=== PATIENT | male | born 1980 | race Caucasian/White ===

== ENCOUNTER 2017-07-12 06:13 | Observation (INO) | payer SELFPAY ==
[~2017-07-12] VITALS: Ht 172.7 cm; Wt 78.0 kg
--- NOTE | 2017-07-12 06:43 | NUR ---
PT. TO ROOM 6 VIA W/C WITH C/O HIS TESTICLES BEING EDEMATOUS FOR 3 DAYS.
--- NOTE | 2017-07-12 06:47 | NUR ---
REPORT GIVEN TO BALDOMERO MALIK.
--- NOTE | 2017-07-12 06:47 | NUR ---
REPORT RECEIVED FROM KING LLOYD.
[2017-07-12 07:01] LABS: IMMATURE GRANULOCYTES 0.8 % (0.0-1.0); MEAN CELL VOLUME 86.3 fL CALC (80.0-100.0); MEAN CORPUSCULAR HGB 29.3 pG CALC (26.0-32.0); MEAN CORPUSCULAR HGB CONC 33.9 g/L CALC (32.0-36.0); NEUT# 25.36 thou/uL (1.82-7.42); RED BLOOD COUNT 4.75 mill/uL (4.70-6.10); RED CELL DISTRI WIDTH 12.5 % (11.5-15.5)
[2017-07-12 07:02] LABS: HEMOGLOBIN 13.9 g/dl (14.0-18.0)
[2017-07-12 07:03] LABS: URINE BILIRUBIN - DIPSTICK NEGATIVE (NEGATIVE); URINE BLOOD DIPSTICK NEGATIVE (NEGATIVE); URINE COLOR YELLOW; URINE GLUCOSE - DIPSTICK NEGATIVE (NEGATIVE); URINE KETONE NEGATIVE (NEGATIVE); URINE LEUK ESTERASE NEGATIVE (NEGATIVE); URINE PH 8.5 (4.5-8.0); URINE PROTEIN - DIPSTICK TRACE mg/dL (NEG-TRACE); URINE SPECIFIC GRAVITY 1.015; URINE UROBILINOGEN - DIPSTICK 0.2 E.U./dL (0.2)
[2017-07-12 07:04] LABS: URINE CLARITY CLEAR; URINE NITRITE - DIPSTICK POSITIVE (Negative)
--- NOTE | 2017-07-12 07:20 | NUR ---
PATIENT MEDICATED WITH A TOTAL OF 6 MG OF MORPHINE, 30 MG OF TORADOL, 4 MG OF ZOFRAN AND IV ANTIBIOTICS STARTED IN TWO DIFFERENT LINES. PATIENT CONTINUES TO BE RESTLESS IN BED HOLDING TESTICLES. INFORMED OF CT SCAN AND UTRASOND ORDERS MOTHER AT BEDSIDE. CALL LIGHT WITHIN REACH.
[2017-07-12 07:21] LABS: ALBUMIN 4.5 g/dL (3.2-5.0); ALKALINE PHOSPHATASE 101 u/l (38-126); ANION GAP 21 (6-22 (CALC)); BILIRUBIN, TOTAL 0.7 mg/dL (0.0-1.4); BUN 12 mg/dL (9-20); BUN/CREATININE RATIO 12 (12-20 (CALC)); CARBON DIOXIDE 25 mmol/l (22-30); CHLORIDE 97 mmol/l (95-108); CREATININE 1.1 mg/dL (0.7-1.3); GFR > 60 ML/MIN (>=60 (CALC)); GFR FOR AFR.AMER. > 60 ML/MIN (>=60 (CALC)); POTASSIUM 4.7 mmol/l (3.5-5.1); SGOT/AST 21 u/l (17-59); SGPT/ALT 29 u/l (21-72); SODIUM 138 mmol/l (137-146); TOTAL PROTEIN 7.4 g/dL (6.3-8.2); URINE WBC 20-50 WBC/hpf (0-5)
[2017-07-12 07:22] LABS: URINE BACTERIA MANY hpf; URINE EPITHELIAL CELLS FEW EPI/hpf (0-FEW)
--- NOTE | 2017-07-12 08:00 | NUR ---
PATIENT CONTINUES IN RADIOLOGY DEPARTMENT.
--- NOTE | 2017-07-12 08:35 | NUR ---
PATIENT VOIDS 125 ML OF CLEAR YELLOW URINE WITH PAIN AND DIFFICULTY STARTING FLOW. REPORTS PAIN LEVEL 4/10 AT THIS TIME. SIDERAILS UP, CALL LIGHT WITHIN REACH, WILL CONTINUE TO MONITOR.
--- NOTE | 2017-07-12 09:07 | NUR ---
PT MEDICATED FOR PAIN VIA IV. FLUIDS CONTINUE. PT VOIDED APPROX 300 ML URINE IN URINAL. ADVISED OF CONTINUED WAIT TIME.
--- NOTE | 2017-07-12 09:47 | NUR ---
REPORT GIVEN KING AGUILERA. REQUEST 20 MINUTES DELAY IN TRANSPORT.
--- NOTE | 2017-07-12 10:08 | NUR ---
PATIENT REPORTS PAIN 7/10 AT THIS TIME. UPDATED ON PLAN OF CARE. VERBAL UNDERSTANDING.
--- NOTE | 2017-07-12 10:20 | NUR ---
PATIENT TRANSPORTED TO [facility] VIA STRETCHER, BEDSIDE REPORT GIVEN TO KING AGUILERA. VANCO ANTIBIOTIC TO CONTINUE INFUSION ON [facility]. CARE RELINQUISHED TO KING AGUILERA.
--- NOTE | 2017-07-12 10:25 | NUR ---
PT ARRIVED TO FLOOR VIA STRETCHER ACCOMPANIED BY KING ALEXANDRE. PT DOUBLED OVER APPEARING TO BE IN SEVERE PAIN. REPORTS PAIN IS 10 ON SCALE OF 0-10 IN TESTICLES, RADIATING THROUGH TO BACK. DR. SNOW NOTIFIED. PLAN OF CARE DISCUSSED. MOTHER AT BEDSIDE. CALL LIGHT REVIEWED AND IN REACH.
[2017-07-12 10:29] VITALS: BP 103/74
--- NOTE | 2017-07-12 10:45 | NUR ---
PT MEDICATED WITH MORPHINE IV AT THIS TIME. WILL MONITOR FOR EFFECTIVENESS.
--- NOTE | 2017-07-12 11:54 | NUR ---
Drug Selected: Vancomycin Age: 36 years Weight: 78 kg Height: 68 in Gender: Male SCR: 1.1 mg/dl Calculated Values: Dosing weight: 78 kg IBW: 68.40 kg CRCL (ml/min): 90.7 GIVE VANCOMYCIN 1250MG Q12H NEXT TROUGH WILL BE 07/14/17 BEFORE 4TH DOSE AT 0830 PHARMACY TO DOSE ZOSYN BASED ON RENAL FUNCTION PER
--- NOTE | 2017-07-12 13:10 | NUR ---
PT REPORTING SEVERE TESTICULAR PAIN. PERCOCET PO ADMINISTERED.
--- NOTE | 2017-07-12 16:00 | NUR ---
PT SLEEPING AT THIS TIME. CALL LIGHT WITHIN REACH.
[2017-07-12 16:30] VITALS: BP 92/62
--- NOTE | 2017-07-12 17:34 | NUR ---
PT REPORTING SEVERE TESTICULAR PAIN. MS IV ADMINISTERED. WILL CONTINUE TO MONITOR.
[2017-07-12 19:42] VITALS: BP 118/68
--- NOTE | 2017-07-12 22:10 | NUR ---
PATIENT RESTING IN BED-C/O SEVERE LOW BACK AND TESTICULAR PAIN-MEDICATED WITH PERCOCET 5/325MG PO AND WITH XANAX 0.5MG PO FOR ANXIETY. PATIENT IS RESTLESS AND THRAHING ABOUT IN THE BED. INSTRUCTED PATIENT REGUARDING I&O AND USING THE URINAL. VERBALIZES UNDERSTANDING OF THE STATED. CALL LIGHT IN REACH. WILL CONT TO MONITOR.
--- NOTE | 2017-07-13 00:53 | NUR ---
APPEARS SLEEPING AT THIS TIME WITH EYES CLOSED. IVF NS PATENT AND INFUSING AT 125CC/HR VIA RIGHT AC SITE. CALL LIGHT IN REACH. WILL CONT TO MONITOR.
--- NOTE | 2017-07-13 03:00 | NUR ---
PATIENT VOIDED 200CC OF FRAN URINE-C/O SEVERE PAIN, RESTLESS IN THE BED. MEDICATED WITH PERCOCET 5/325MG PO FOR PAIN. CALL LIGHT IN REACH. WILL CONT TO MONITOR.
--- NOTE | 2017-07-13 04:00 | NUR ---
TEMP 100.9-MEDICATED WITH TYLENOL 650MG PO FOR TEMP. PAIN 4/10 AT THIS TIME. RESTING IN BED. CALL LIGHT IN REACH. WILL CONT TO MONITOR
[2017-07-13 04:10] VITALS: BP 98/62
[2017-07-13 05:37] LABS: BASO% 0 % (0-3); EOS% 0 % (0-8); LYMPH% 4 % (15-41); MEAN CELL VOLUME 87.9 fL CALC (80.0-100.0); MEAN CORPUSCULAR HGB 29.5 pG CALC (26.0-32.0); MEAN CORPUSCULAR HGB CONC 33.5 g/L CALC (32.0-36.0); MONO% 8 % (2-13); NEUT# 34.06 thou/uL (1.82-7.42); NEUT% 84 % (42-76); RED CELL DISTRI WIDTH 13.1 % (11.5-15.5)
[2017-07-13 05:56] LABS: BAND 8 % (0-8); HEMATOCRIT 33.4 % (39.0-50.0); HEMOGLOBIN 11.2 g/dl (14.0-18.0); MANUAL DIFFERENTIAL YES; PLATELET COUNT 296 thou/uL (130-400)
--- NOTE | 2017-07-13 07:15 | NUR ---
PATIENT IS AFEBRILE AT THIS TIMESITTING UP IN THE CHAIR. C/O PAIN 8/10 ON PAIN SCALE. MEDICATED WITH PERCOCET 5/325MG PO. DR. SNOW NOTIFIED OF WBC-CULTURES ORDERED. SPECS OBTAINED. IVF PATENT AND INFUSING VIA RIGHT AC SITE-SITE APPEARS HEALTHY AT THIS TIME. LINENS BEING CHANGED ON HIS BED. CALL LIGHT IN REACH. WILL CONT TO MONITOR.
--- NOTE | 2017-07-13 07:26 | NUR ---
REPORT RECEIVED FROM KING SHAW. PT SITTING IN CHAIR AT BEDSIDE. REPORTS SCROTAL PAIN. PERCOCET PO ADMINISTERED. PLAN OF CARE DISCUSSED. REPORTING OF CONCERNS ENCOURAGED. CALL LIGHT REVIEWED AND IN REACH. PT STATES UNDERSTANDING.
[2017-07-13 08:22] VITALS: BP 136/72
--- NOTE | 2017-07-13 11:53 | NUR ---
PT IN SEVERE LEFT PELVIC AND SCROTAL PAIN. PERCOCET PO ADMINISTERED WITH NO RELIEF. MORPHINE IV ADMINISTERED WITH NO RELIEF. SCROTUM ELEVATED AND ICE PACK APPLIED. PT STILL CRYING AND MOANING IN PAIN. THANH EMANUEL IN TO SEE PT. ORDER FOR DILAUDID IV X 1 ORDERED. WILL MONITOR FOR EFFECTIVENESS.
--- NOTE | 2017-07-13 12:22 | NUR ---
PT CALM NOW. REPORTS RELIEF OF PAIN. SCROTUM ELEVATED. REPORTING OF RETURN OF PAIN ENCOURAGED. PT STATES UNDERSTANDING.
[2017-07-13 15:54] VITALS: BP 112/72
--- NOTE | 2017-07-13 16:30 | NUR ---
PT REPORTS SEVERE PELVIC AND SCROTAL PAIN. DILAUDID IV ADMINISTERED. PT REPORTS RELIEF WITHIN A FEW MINUTES. INSTRUCTED TO NOTIFY NURSE WHEN PAIN STARTS TO RETURN.
[2017-07-13 18:48] VITALS: BP 105/63
--- NOTE | 2017-07-13 19:58 | NUR ---
PATIENT RESTING IN BED-AWAKE ALERT AND ORIENTEDX3. IV SITE TO RIGHT AC IS LEAKING AND SITE D/GALINDO. IVF NS MOVED TO HEP LOCK TO LEFT FOREARM AND INFUSING AT 125CC/HR. SCROTUM IS SEVERELY RED, SWOLLEN, AND PAINFUL. USING COLD PACK TO AFFECTED AREA FOR 20MINAT A TIME. MEDICATED FOR PAIN-10/10 ON PAIN SCALE WITH DILAUDID 1MG IVP. PATIENT WITH PAINFUL URINATION-CLEAR YELLOW URINE 125CC/HR IN URINAL. SAFETY PRECAUTIONS REINFORCED. CALL LIGHT IN REACH. WILL CONT TO MONITOR.
--- NOTE | 2017-07-13 22:27 | NUR ---
APPEARS SLEEPING AT THIS TIME. CALL LIGHT IN REACH. WILL CONT TO MONITOR.
[2017-07-13 23:59] VITALS: BP 109/76
--- NOTE | 2017-07-14 00:15 | NUR ---
IV BASIASYN HUNG ORDERED. PATIENT OOB TO BR TO VOID 300CC OF YELLOW URINE-URINE IS MUCH DIRECTOR OF SPECIAL EDUCATION THAN LAST NIGHT. STILL IS VERY PAINFUL URINATION AND PATIENT RETURNED TO BED. MEDICATED FOR 10/10 ON PAIN SCALE WITH DILAUDID 1MG IVP. CALL LIGHT IN REACH. WILL CONT TO MONITOR.
--- NOTE | 2017-07-14 02:42 | NUR ---
APPEARS SLEEPING AT THIS TIME. CALL LIGHT IN REACH. IVF PATENT AND INFUSING AT 125CC/HR. WILL CONT TO MONITOR.
--- NOTE | 2017-07-14 03:30 | NUR ---
PATIENT UP TO THE BR TO VOID-RETURNED TO BED. PATIENT C/O 01/28 PAIN MEDICATED WITH DILAUDID 1MG IVP FOR SCROTAL PAIN. NEW IV SITE TO RIGHT UPPER ARM WAS STARTED WITHOUT ANY DIFFICULTY WITH GOOD BLOOD RETURN. IVF NS PATENT AND INFUSING AT 125CC/HR. USE COLD PACKS TO SCROTUM FOR COMFORT AND SWELLING. CALL LIGHT IN REACH. WILL CONT TO MONITOR.
[2017-07-14 03:59] VITALS: BP 126/79
[2017-07-14 05:06] LABS: BASO% 0 % (0-3); EOS% 1 % (0-8); HEMATOCRIT 31.8 % (39.0-50.0); HEMOGLOBIN 10.8 g/dl (14.0-18.0); LYMPH% 5 % (15-41); MEAN CELL VOLUME 88.1 fL CALC (80.0-100.0); MEAN CORPUSCULAR HGB 29.9 pG CALC (26.0-32.0); MONO% 7 % (2-13); NEUT# 26.32 thou/uL (1.82-7.42); NEUT% 85 % (42-76); PLATELET COUNT 272 thou/uL (130-400); RED BLOOD COUNT 3.61 mill/uL (4.70-6.10); RED CELL DISTRI WIDTH 13.1 % (11.5-15.5)
[2017-07-14 05:09] LABS: MANUAL DIFFERENTIAL YES
--- NOTE | 2017-07-14 05:22 | NUR ---
RECIEVED CALL FROM [facility] IN LAB-WBC 30.9-TRENDING DOWN AND TREATMENT IN PLACE. PATIENT RESTING IN BED APPEARS SLEEPING. TEMP 99.2 AFTER TYLENOL. CALL LIGHT IN REACH. WILL CONT TO MONITOR
[2017-07-14 05:25] LABS: ALKALINE PHOSPHATASE 115 u/l (38-126); BILIRUBIN, TOTAL 0.4 mg/dL (0.0-1.4); BUN 7 mg/dL (9-20); BUN/CREATININE RATIO 8 (12-20 (CALC)); CARBON DIOXIDE 23 mmol/l (22-30); CHLORIDE 103 mmol/l (95-108); CREATININE 0.8 mg/dL (0.7-1.3); GFR > 60 ML/MIN (>=60 (CALC)); GFR FOR AFR.AMER. > 60 ML/MIN (>=60 (CALC)); SGOT/AST 15 u/l (17-59); SGPT/ALT 35 u/l (21-72); SODIUM 136 mmol/l (137-146)
[2017-07-14 05:26] LABS: ANION GAP 14 (6-22 (CALC))
[2017-07-14 05:27] LABS: ALBUMIN 2.6 g/dL (3.2-5.0); C-REACTIVE PROTEIN 13.5 mg/dL (0-0.9); POTASSIUM 3.5 mmol/l (3.5-5.1); TOTAL PROTEIN 5.4 g/dL (6.3-8.2)
[2017-07-14 05:50] LABS: BAND 3 % (0-8)
--- NOTE | 2017-07-14 07:05 | NUR ---
REPORT RECEIVED FROM KING SHAW;PT APPEARS TO BE SLEEPING IN SEMI FOWLERS POSITION;NO S/S OF DISTRESS NOTED;RESPIRATIONS EVEN AND UNLABORED ON RA;FALL PRECAUTIONS IN PLACE;WILL CONTINUE TO MONITOR
[2017-07-14 07:57] VITALS: BP 106/73
--- NOTE | 2017-07-14 08:05 | NUR ---
PT RESTING IN RIGHT SIDE LAYING POSITION;PT A&O X3;VS OBTAINED AND ASSESSMENT COMPLETED;PT COMPLAINS OF SCOTUM PAIN RATING 8/10 ON THE PAIN SCALE AND REQUESTS PAIN MEDICATION;PT MEDICATED WITH DILAUDID 1MG IVP,WILL MONITOR FOR EFFECTIVENESS;RESPIRATIONS EVEN AND UNLABORED ON RA;ABDOMEN SOFT ON PALPATION;#22G TO RIGHT UPPER ARM INFUSING NS @ 125ML/HR WELL,SITE APPEARS HEALTHY;PT ENCOURAGED TO ELEVATE SCROTUM WHICH IS SEVERELY RED,SWOLLEN AND PAINFUL;COOL PACKS PROVIDED;PT DENIES ANY OTHER NEEDS AT THIS TIME AND IS ENCOURAGED TO CALL FOR ASSISTANCE IF NEEDED;CALL LIGHT IN REACH;WILL CONTINUE TO MONITOR
--- NOTE | 2017-07-14 10:03 | NUR ---
S: KATHARINA RONDON JR is a 36 M who presents with orchitis and dysuria. He denied PMH. All medications in patient's chart were reviewed. O: VS: BP 106/73 mmHg, P 102 bpm, RR 20 bpm,T 99.0 (F) W 78.018 kg, HT 68 in, Scr= 1.1,CrCl= 90 ml/min A: Blood culture show no growth after 48 hours. Urine culture shows E. coli which is hassan-sensitive. P: Patient is on Zosyn 3.375 gm IV q6h and levofloxacin 750 mg IV q24h. Vancomycin ordered for pharmacy to dose. Vancomycin trough came back at 7 mcg/mL on 07/14/17 at 0830. Increase vancomycin 1250 mg IV Q8H. Vancomycin trough is drawn before the 4th dose on 07/15/17 at 1630. Patient's Zosyn dose will be moved from 1800 to 1900 to accomodate Vancomycin dosing. Vancomycin goal trough is between 15-20 mcg/ml. Pharmacy will follow and or advise on antibiotics use as needed.
--- NOTE | 2017-07-14 12:20 | NUR ---
PT TO XRAY IN STABLE CONDITION VIA WC ACCOMPANIED BY STAFF MEMBER
--- NOTE | 2017-07-14 13:00 | NUR ---
PT RETURNED FROM CT IN STABLE CONDITION;PT AMBULATED FROM WC TO BEDSIDE WITH STEADY GAIT;IV SITE PATENT;PT VOICES NO CONCERNS AT THIS TIME;ENCOURAGED PT TO KEEP SCROTUM ELEVATED;CALL LIGHT WITHIN REACH;WILL CONTINUE TO MONITOR
[2017-07-14 16:50] VITALS: BP 121/84
--- NOTE | 2017-07-14 17:10 | NUR ---
PT RESTING IN SEMI FOWLERS POSITION WITH FAMILY AT BEDSIDE;PT REPORTS A DECREASE IN PAIN AT THIS TIME;IV SITE PATENT INFUSING NS @ 125ML/HR;ADDITIONAL PILLOW PROVIDED PER REQUEST;PT DENIES ANY OTHER NEEDS;CALL LIGHT IN REACH;WILL CONTINUE TO MONITOR
[2017-07-14 19:00] VITALS: BP 138/83
--- NOTE | 2017-07-14 19:30 | NUR ---
PATIENT RESTING IN BED AT THIS TIME-AWAKE ALERT AND ORIENTEDX3. IV SITE TO RIGHT UPPER ARM INTACT WITH IVF NS PATENT AND INFUSING AT 125CC/HR. SITE APPEARS HEALTHY AT THIS TIME. PATIENT CONT TO HAVE RED SWOLLEN AND PAINFUL SCROTUM-ENCOURAGED PATIENT TO KEEP ELEVATED AND USE COLD PACKS PRN FOR SWELLING AND COMFORT. PATIENT CONT TO HAVE PAINFUL URINATION AND VOIDING YELLOW URINE IN URINAL. SAFETY PRECAUTIONS REINFORCED.CALL LIGHT IN REACH. WILL CONT TO MONITOR.
--- NOTE | 2017-07-14 19:45 | NUR ---
PATIENT WITH TEMP 101.8-MEDICATED WITH TYLENOL 650MG PO AND WITH DILAUDID 1MG IVP FOR SCROTAL PAIN. CALL LIGHT IN REACH. WILL CONT TO MONITOR.
[2017-07-14 20:56] VITALS: BP 117/71
--- NOTE | 2017-07-14 21:00 | NUR ---
PATIENT RESTING IN AND EXTREMELY DIAPHORETIC-SWEATING PROFUSELY. PATIENT UP TO THE BR TO VOID. UDS OBTAINED AND SENT TO LAB ORDERED. BACK TO BED. WILL CONT TO MONITOR
[2017-07-14 21:09] LABS: BARBITURATES NEGATIVE (NEGATIVE); COCAINE NEGATIVE (NEGATIVE); METHADONE NEGATIVE (NEGATIVE); OXCYCODONE POSITIVE (NEGATIVE); TETRAHYDROCANNABIONOL NEGATIVE (NEGATIVE); TRICYLIC ANTIDEPRESSANTS NEGATIVE (NEGATIVE)
--- NOTE | 2017-07-14 22:48 | NUR ---
PATIENT APPEARS SLEEPING AT THIS TIME POSITIONED ON HIS LEFT SIDE. IVF PATENT AND INFUSING VIA RIGHT UPPER ARM SITE. CALL LIGHT IN REACH. WILL CONT TO MONITOR.
[2017-07-15 00:41] VITALS: BP 120/77
--- NOTE | 2017-07-15 02:09 | NUR ---
PATIENT UP TO THE BR TO VOID-EMPTIED 200CC IN URINAL. LINENS ARE DAMP FROM DIAPHORESIS-COMPLETE LINEN AND GOWN CHANGED. BACK TO BED WITH NO COMPLAINTS. ENCOURAGED PO FLUIDS. CALL LIGHT IN REACH. WILL CONT TO MONITOR.
[2017-07-15 03:49] VITALS: BP 118/74
--- NOTE | 2017-07-15 03:58 | NUR ---
PATIENT WITH TEMP OF 101.6-MEDICATED WITH TYLENOL 650 MG PO FOR TEMP. IVF PATENT AND INFUSING AT 125CC/HR. CALL LIGHT IN REACH. WILL CONT TO MONITOR.
[2017-07-15 05:41] LABS: HEMATOCRIT 30.1 % (39.0-50.0); HEMOGLOBIN 10.2 g/dl (14.0-18.0); IMMATURE GRANULOCYTES 2.6 % (0.0-1.0); MEAN CELL VOLUME 87.8 fL CALC (80.0-100.0); MEAN CORPUSCULAR HGB 29.7 pG CALC (26.0-32.0); MEAN CORPUSCULAR HGB CONC 33.9 g/L CALC (32.0-36.0); NEUT# 19.7 thou/uL (1.82-7.42); RED BLOOD COUNT 3.43 mill/uL (4.70-6.10); RED CELL DISTRI WIDTH 12.9 % (11.5-15.5)
--- NOTE | 2017-07-15 06:17 | NUR ---
PATIENT RESTING IN BED-APPEARS SLEEPING-TEMP RECHECK IS 99.3. PATIENT HAS BEEN SLEEPING MOST OF THE NIGHT WITH NO COMPLAINTS. NO C/O PAIN SINCE EARLY LAST NIGHT. TORADOL GIVEN ORDERED. CALL LIGHT IN REACH. WILL CONT TO MONITOR.
[2017-07-15 06:21] LABS: ANION GAP 16 (6-22 (CALC)); BUN 5 mg/dL (9-20); BUN/CREATININE RATIO 6 (12-20 (CALC)); CARBON DIOXIDE 24 mmol/l (22-30); CHLORIDE 106 mmol/l (95-108); CREATININE 0.9 mg/dL (0.7-1.3); GFR > 60 ML/MIN (>=60 (CALC)); GFR FOR AFR.AMER. > 60 ML/MIN (>=60 (CALC)); MAGNESIUM 1.9 mg/dL (1.6-2.3); POTASSIUM 3.4 mmol/l (3.5-5.1); SODIUM 142 mmol/l (137-146)
--- NOTE | 2017-07-15 07:05 | NUR ---
REPORT RECEIVED FROM KING SHAW;PT APPEARS TO BE SLEEPING IN LEFT SIDE LAYING POSITION;NO S/S OF DISTRESS NOTED;RESPIRATIONS EVEN AND UNLABORED ON RA;IV SITE PATENT INFUSING NS @ 125ML/HR;CALL LIGHT IN REACH;WILL CONTINUE TO MONITOR
[2017-07-15 08:04] VITALS: BP 107/73
--- NOTE | 2017-07-15 08:05 | NUR ---
PT APPEARS TO BE SLEEPING IN SUPINE POSITION;WOKE PT TO OBTAIN VS AND COMPLETE ASSESSMENT;CURRENT TEMP 98.7;RESPIRATIONS EVEN AND UNLABORED ON RA,CLEAR LUNG SOUNDS NOTED;ABDOMEN SOFT ON PALPATION AND ACTIVE IN ALL 4 QUADRANTS;SCROTUM ENLARGED/SWOLLEN,PAINFUL AND WARM TO TOUCH;RE-ENCOURAGED PT TO KEEP ELEVATED;STRONG PEDAL PULSES;#22G TO RIGHT FOREARM INFUSING NS @ 125ML/HR WELL,SITE APPEARS HEALTHY;PT VOICES NO COMPLAINTS OR NEEDS AT THIS TIME;ENCOURAGED TO CALL FOR ASSISTANCE IF NEEDED;SAFETY PRECAUTIONS REINFORCED;CALL LIGHT WITHIN REACH;WILL CONTINUE TO MONITOR
--- NOTE | 2017-07-15 12:00 | NUR ---
PT APPEARS TO BE SLEEPING IN SUPINE POSITION;NO S/S OF DISTRESS NOTED;RESPIRATIONS EVEN AND UNLABORED ON RA;IV SITE PATENT;CURRENT TEMP 98.7;CALL LIGHT WITHIN REACH;WILL CONTINUE TO MONITOR
[2017-07-15 16:05] VITALS: BP 112/73
--- NOTE | 2017-07-15 16:05 | NUR ---
PT RESTING IN HIGH FOWLERS POSITION WITH FAMILY AT BEDSIDE;VS OBTAINED WITH A CURRENT TEMP OF 100.8;PRN TYLENOL 650MG PO TO BE ADMINISTERED;PT REQUESTS A SHOWER AT THIS TIME;IV SITE REMAINS PATENT;CALL LIGHT WITHIN REACH;WILL CONTINUE TO MONITOR
--- NOTE | 2017-07-15 17:03 | NUR ---
TEMP RE-CHECK 99.1
[2017-07-15 19:21] VITALS: BP 136/88
--- NOTE | 2017-07-15 20:00 | NUR ---
PATIENT RESTING IN BED AT THIS TIME-ORIENTEDX3. PATIENT MEDICATED WITH XANAX 0.5MG PO FOR ANXIETY AND WITH PERCOCET 10/325MG PO FOR PAIN. SCROTUM REMAINS RED SWOLLEN AND PAINFUL-SWELLING IS DOWN SLIGHTLY FROM EARLIER IN THE WEEK. USING TOWEL ROLL FOR ELEVATION. DECLINES COLD PACKS AT THIS TIME. IV SITE TO RIGHT UPPER ARM INTACT WITH IVF PATENT AND INFUSING AT KVO RATE. VOIDING QS IN URINAL CLEAR YELLOW URINE. STATES THAT HE HAD A BM TODAY. SAFETY PRECAUTIONS REINFORCED. CALL LIGHT IN REACH. WILL CONT TO MONITOR.
--- NOTE | 2017-07-15 21:51 | NUR ---
PATIENT APPEARS SLEEPING AT THIS TIME-MEDICATED WITH SCHEDULED TORADOL 15MG IVP ORDERED. TEMP 100.1 AT THIS TIME. CALL LIGHT IN REACH. WILL CONT TO MONITOR.
[2017-07-16 00:10] VITALS: BP 117/74
--- NOTE | 2017-07-16 02:06 | NUR ---
IV SITE FOUND DISLODED AND SITE D/GALINDO. NEW IV SITE TO LEFT UPPER ARMS STARTED #22 GAUGE WITH GOOD BLOOD RETURN. IVF 20CC/HR ORDERED. PATIENT VOIDING CLEAR YELLOW URINE AND I&O MAINTAINED. PATIENT C/O PAIN-6/10 ON PAIN SCALE-MEDICATED WITH PERCOCET 10/325MG PO FOR PAIN. CALL LIGHT IN REACH. WILL CONT TO MONITOR.
[2017-07-16 04:15] VITALS: BP 114/67
[2017-07-16 05:20] LABS: HEMATOCRIT 29.3 % (39.0-50.0); HEMOGLOBIN 10.6 g/dl (14.0-18.0); IMMATURE GRANULOCYTES 0.9 % (0.0-1.0); MEAN CELL VOLUME 90.4 fL CALC (80.0-100.0); MEAN CORPUSCULAR HGB 32.7 pG CALC (26.0-32.0); MEAN CORPUSCULAR HGB CONC 36.2 g/L CALC (32.0-36.0); NEUT# 14.9 thou/uL (1.82-7.42); RED BLOOD COUNT 3.24 mill/uL (4.70-6.10); RED CELL DISTRI WIDTH 13.1 % (11.5-15.5)
[2017-07-16 05:31] LABS: ANION GAP 15 (6-22 (CALC)); BUN 5 mg/dL (9-20); BUN/CREATININE RATIO 5 (12-20 (CALC)); CARBON DIOXIDE 25 mmol/l (22-30); CHLORIDE 105 mmol/l (95-108); CREATININE 0.9 mg/dL (0.7-1.3); GFR > 60 ML/MIN (>=60 (CALC)); GFR FOR AFR.AMER. > 60 ML/MIN (>=60 (CALC)); MAGNESIUM 1.9 mg/dL (1.6-2.3); POTASSIUM 3.3 mmol/l (3.5-5.1); SODIUM 141 mmol/l (137-146)
--- NOTE | 2017-07-16 06:18 | NUR ---
APPEARS SLEEPING AT THIS TIME POSITIONED ON HIS SIDE WITH EYES CLOSED. CALL LIGHT IN REACH. WILL CONT TO MONITOR.
--- NOTE | 2017-07-16 07:10 | NUR ---
REPORT RECEIVED FROM KING SHAW;PT RESTING IN SUPINE POSITION;INTRODUCED SELF TO PT AND POC DISCUSSED;PT VOICES NO COMPAINTS OR CONCERNS AT THIS TIME;IV SITE PATENT;ENCOURAGED PT TO CALL FOR ASSISTANCE IF NEEDED;WILL CONTINUE TO MONITOR
[2017-07-16 07:58] VITALS: BP 94/56
--- NOTE | 2017-07-16 08:00 | NUR ---
PT APPEARS TO BE SLEEPING IN LEFT SIDE LAYING POSITION;WOKE PT TO OBTAIN VS AND COMPLETE ASSESSMENT;CURRENT TEMP 98.6;RESPIRATIONS EVEN AND UNLABORED ON RA,CLEAR LUNG SOUNDS NOTED;ABDOMEN SOFT ON PALPATION AND ACTIVE IN ALL 4 QUADRANTS;SCROTUM ENLARGED/SWOLLEN IN SIZE,PAINFUL AND WARM TO TOUCH;PT RE-EDUCATED ON ELEVATION AND VERBALIZES UNDERSTANDING;STRONG PEDAL PULSES;URINAL EMPTIED OF 300CC OF CLEAR/YELLOW URINE;#22G TO LEFT UPPER ARM INFUSING NS @ 20ML/HR,SITE APPEARS HEALTHY;PT VOICES NO COMPLAINTS OF PAIN OR DISCOMFORTS AT THIS TIME;SAFETY PRECAUTIONS REINFORCED;ENCOURAGED PT TO EXPRESS CONCERNS;CALL LIGHT WITHIN REACH;WILL CONTINUE TO MONITOR
--- NOTE | 2017-07-16 12:20 | NUR ---
PT RESTING IN HIGH FOWLERS POSITION EATING LUNCH;PT VOICES NO COMPLAINTS OF PAIN;SCROTUM REMAINS ELEVATED;IV SITE PATENT INFUSING NS @ 20ML/HR;ENCOURAGED TO CALL FOR ASSISTANCE IF NEEDED;WILL CONTINUE TO MONITOR
--- NOTE | 2017-07-16 13:50 | NUR ---
PT MEDICATED WITH TYLENOL 650MG PO FOR A TEMP OF 102.0;WILL MONITOR FOR EFFECT
--- NOTE | 2017-07-16 15:08 | NUR ---
TEMP RE-CHECK 101.1
--- NOTE | 2017-07-16 15:50 | NUR ---
PPD ADMINISTERED TO THE LEFT FOREARM BY KING ARRIOLA;PT DENIES ANY PAIN AT THIS TIME;BLANKETS REMAIN REMOVED AND AC LOWERED;IV SITE PATENT INFUSING NS @ 20ML/HR;PT DENIES ANY CURRENT NEEDS;CALL LIGHT WITHIN REACH;WILL CONTINUE TO MONITOR
[2017-07-16 16:20] VITALS: BP 118/80
--- NOTE | 2017-07-16 19:43 | NUR ---
PT RESTING ON ON LEFT SIDE A/O X3, RESPIRATIONS EVEN AND UNLABORED ON RA. TEMP 101.8, TYLENOL 650MG PO PROVIDED. VANCOMYCIN INFUSING TO JOSE WITH NO COMPLICAITONS. CALL LIGHT IN REACH. WILL CONTINUE TO MONITOR.
[2017-07-16 19:45] VITALS: BP 129/72
--- NOTE | 2017-07-16 20:43 | NUR ---
TEMP 102.0, ICE PACK APPLIED TO CHEST.
--- NOTE | 2017-07-16 23:47 | NUR ---
TEMP 98.3
--- NOTE | 2017-07-17 02:30 | NUR ---
RESTING ON RIGHT SIDE WITH EYES CLOSED, RESPIRATIONS EVEN AND UNLABORED. CALL LIGHT IN REACH.
[2017-07-17 05:02] VITALS: BP 106/70
[2017-07-17 05:35] LABS: ANION GAP 15 (6-22 (CALC)); BUN 5 mg/dL (9-20); BUN/CREATININE RATIO 5 (12-20 (CALC)); CARBON DIOXIDE 29 mmol/l (22-30); CHLORIDE 102 mmol/l (95-108); CREATININE 0.9 mg/dL (0.7-1.3); GFR > 60 ML/MIN (>=60 (CALC)); GFR FOR AFR.AMER. > 60 ML/MIN (>=60 (CALC)); MAGNESIUM 2.1 mg/dL (1.6-2.3); POTASSIUM 3.7 mmol/l (3.5-5.1); SODIUM 142 mmol/l (137-146)
[2017-07-17 05:39] LABS: HEMATOCRIT 31.5 % (39.0-50.0); HEMOGLOBIN 11.4 g/dl (14.0-18.0); MEAN CORPUSCULAR HGB 32.6 pG CALC (26.0-32.0); MEAN CORPUSCULAR HGB CONC 36.2 g/L CALC (32.0-36.0); NEUT# 15.03 thou/uL (1.82-7.42); RED BLOOD COUNT 3.5 mill/uL (4.70-6.10); RED CELL DISTRI WIDTH 13.2 % (11.5-15.5)
--- NOTE | 2017-07-17 05:45 | NUR ---
TORADOL IV GIVEN PER JUN, ADMITS TO SCROTAL PAIN 07/29. ZOSYN SPIKED AND INFUSING TO BRAY[place] WITH NO COMPLICAITONS. PO FLUIDS AND CALL LIGHT IN REACH.
--- NOTE | 2017-07-17 07:05 | NUR ---
REPORT RECEIVED FROM WISAM RUTHERFORD;PT APPEARS TO BE SLEEPING IN LEFT SIDE LAYING POSITION;NO S/S OF DISTRESS NOTED;RESPIRATIONS EVEN AND UNLABORED ON RA;CALL LIGHT IN REACH;WILL CONTINUE TO MONITOR
[2017-07-17 08:30] VITALS: BP 111/64
--- NOTE | 2017-07-17 08:30 | NUR ---
PT UP TO BEDSIDE;VS OBTAINED AND ASSESSMENT COMPLETED;PT A&O X3;RESPIRATIONS EVEN AND UNLABORED ON RA,CLEAR LUNG SOUNDS NOTED;ABDOMEN SOFT ON PALPATION AND ACTIVE IN ALL 4 BOWEL SOUNDS;SCROTUM ENLARGED/SWOLLEN,PAINFUL AND WARM TO TOUCH;EDEMA HAS DECREASED SINCE YESTERDAY;REINFORCED THE IMPORTANCE OF ELEVATION,PT VERBALIZES UNDERSTANDING;CURRENT TEMP 99.1;#22G TO LEFT UPPER ARM INFUSING NS @ 80ML/HR,SITE APPEARS HEALTHY;URINAL EMPTIED OF 300CC OF CLEAR/YELLOW URINE;PT VOICES NO COMPLAINTS OF PAIN OR DISCOMFORTS;ENCOURAGED TO CALL FOR ASSISTANCE IF NEEDED;CALL LIGHT IN REACH;WILL CONTINUE TO MONITOR
[2017-07-17 12:05] VITALS: BP 121/86
--- NOTE | 2017-07-17 12:15 | NUR ---
PT EATING LUNCH IN HIGH FOWLERS POSITION;PT COMPLAINS OF LEFT TESTICAL PAIN RATING 3/10 ON THE PAIN SCALE;PT MEDICATED WITH TYLENOL 650MG PO FOR PAIN AND FEVER OF 100.8;IV SITE PATENT INFUSING WITH EASE;PT DENIES ANY OTHER NEEDS;CALL LIGHT IN REACH;WILL CONTINUE TO MONITOR
[2017-07-17 13:45] VITALS: BP 113/75
[2017-07-17 15:33] VITALS: BP 106/61
--- NOTE | 2017-07-17 16:50 | NUR ---
PT RESTING IN LEFT SIDE LAYING POSITION;PT DENIES ANY PAIN AT THIS TIME;SCROTUM REMAINS ELEVATED ON A ROLLED BATH BLANKET;IV SITE PATENT INFUSING NS @ 20ML/HR;CURRENT TEMP 98.1;URINAL EMPTIED OF 220CC OF CLEAR/YELLOW URINE;PT ENCOURAGED TO CALL FOR ASSISTANCE IF NEEDED;CALL LIGHT IN REACH;WILL CONTINUE TO MONITOR
[2017-07-17 19:00] VITALS: BP 132/84
--- NOTE | 2017-07-17 19:00 | NUR ---
RECEIVED CHANGE OF SHIFT REPORT FROM WISAM BOURGEOIS. PATIENT ALERT AND ORIENTED X 3 AND LYING IN BED. NO APPARENT ACUTE DISTRESS NOTED. WILL CONTINUE TO MONITOR.
--- NOTE | 2017-07-18 | NUR ---
PATIENT RESTING QUIETLY IN BED AT THIS TIME. NO VOICED COMPLAINT. NO APPARENT ACUTE DISTRESS NOTED. WILL CONTINUE TO MONITOR.
--- NOTE | 2017-07-18 04:00 | NUR ---
PATIENT RESTING COMFORTABLY AT THIS TIME. NO APPARENT ACUTE CHANGES NOTED IN PT'S CONDITION.
[2017-07-18 04:20] VITALS: BP 99/63
[2017-07-18 06:38] LABS: HEMOGLOBIN 12.2 g/dl (14.0-18.0); MEAN CELL VOLUME 87.4 fL CALC (80.0-100.0); MEAN CORPUSCULAR HGB 31.4 pG CALC (26.0-32.0); MEAN CORPUSCULAR HGB CONC 35.9 g/L CALC (32.0-36.0); NEUT# 16.17 thou/uL (1.82-7.42); RED BLOOD COUNT 3.89 mill/uL (4.70-6.10)
[2017-07-18 06:55] LABS: ANION GAP 19 (6-22 (CALC)); BUN 6 mg/dL (9-20); BUN/CREATININE RATIO 7 (12-20 (CALC)); CARBON DIOXIDE 26 mmol/l (22-30); CHLORIDE 101 mmol/l (95-108); CREATININE 0.9 mg/dL (0.7-1.3); GFR > 60 ML/MIN (>=60 (CALC)); GFR FOR AFR.AMER. > 60 ML/MIN (>=60 (CALC)); POTASSIUM 4.3 mmol/l (3.5-5.1); SODIUM 141 mmol/l (137-146)
[2017-07-18 07:40] VITALS: BP 104/66
--- NOTE | 2017-07-18 07:40 | NUR ---
PT HAS BEEN RELAXING IN BED , SWEATING ALOT. IV SITE IS FREE FROM REDNESS OR EDEMA. HR IS REG, PULSES ARE STRONG X4, ABD IS SOFT WITH ACTIVE BS. CONTINUE TOOBSERVE AND MONITOR.
--- NOTE | 2017-07-18 12:30 | NUR ---
PT IS RELAXING IN BED NO DISTRESS NOTED. IV SITE IS FREE FROM REDNESS OR EDEMA. HR IS REG,PULSES ARE STRONG X4, ABD IS SOFT WITH ACTIVE BS. CONTINUE TO OBSERVE AND MONITOR.
--- NOTE | 2017-07-18 16:30 | NUR ---
PT IS RELAXING IN BED , FAMILY HAS BEEN IN TO VISIT WITH PT. DR IN TO VISIT WITH PT MEDICATION GIVEN FOR PAIN. ABT'S AND WATER. CONITNUE TO OSBERVE AND MONITOR.
[2017-07-18 16:32] VITALS: BP 114/78
[2017-07-18 19:04] VITALS: BP 102/67
--- NOTE | 2017-07-18 19:41 | NUR ---
PT.IS IN BED W/TV ON AND LIGHTS OUT, AWOKE TO MY VOICE, DENIES ANY NEEDS AT THIS TIME. FLUIDS ARE RUNNING KVO@20. ANTIBIOTIC THERAPY ADMINISTERED AT THIS TIME. CALL LIGHT IS W/IN REACH AND PT.INSTRUCTED TO CALL IF ANY NEEDS ARISE.
--- NOTE | 2017-07-18 20:30 | NUR ---
PT.MEDICATED W/ANTIBIOTIC THERAPY. PT. IS IN BED W/LIGHTS OFF AND TV ON, BUT EYES CLOSED. PT.DENIED ANY NEEDS AT THIS TIME. CALL LIGHT IS W/IN REACH
--- NOTE | 2017-07-19 00:25 | NUR ---
PT.MEDICATED ORDERS PROVIDE FOR ANTIBIOTIC THERAPY AND MEDICATED FOR PAIN REPORTED 10/28. PT.AMBULATED TO RESTROOM AND BACK TO BED. REPORTS EXTREME PAIN IN SCROTUM/TESTICLE UPON URINATION. PT.IS BACK IN BED W/ANTIBIOTIC THERAPY RUNNING, CALL LIGHT IS AT SIDE AND PT.HAS BEEN ENCOURAGED TO CALL IF ANY OTHER NEEDS ARISE.
--- NOTE | 2017-07-19 03:21 | NUR ---
PT.IS SLEEPING AT THIS TIME, LIGHTS ARE OUT, IV FLUIDS ARE RUNNING AT THIS TIME. NO S/S OF DISTRESS, CALL LIGHT IS AT BEDSIDE.
[2017-07-19 04:28] VITALS: BP 106/71
--- NOTE | 2017-07-19 05:57 | NUR ---
PT.MEDICATED FOR PAIN 5/10 AT THIS TIME. PPD ASSESSED/NO REACTION NOTED TO LFA. PO WATER REPLENISHED, PT.DENIES ANY OTHER NEEDS AT THIS TIME. LIGHTS TURNED OFF AND PT.LEFT TO SLEEP.
[2017-07-19 08:00] VITALS: BP 107/71
--- NOTE | 2017-07-19 08:00 | NUR ---
PT'S ASSESSMENT IS COMPLETED: IV SITE IS FREE FROM REDNESS OR EDEMA. HR IS REG, PULSES ARE STRONG X4, ABD IS SOFT WITH ACTIVE BS. SCROTUM IS TENDER TO THE TOUCH. PER PT. CONTINUE TO OSBERVE AND MONITOR.
--- NOTE | 2017-07-19 12:00 | NUR ---
PT IS RELXING IN BED FAMILY HAS BEEN IN TO VISIT WITH HIM. IV SITE IS FREE FROM REDNESS OR EDEMA. CONTINUE TO OBSERVE AND MONITOR.
[2017-07-19 15:21] VITALS: BP 118/75
--- NOTE | 2017-07-19 15:35 | NUR ---
PT HAS BEEN PLAYING ON HIS LAPTOP COMPUTER BROUGHT FROM HOME. IV SITE IS FREE FROM REDNESS OR EDEMA CONTINUE TO OBSERVE AND MONITOR.
--- NOTE | 2017-07-19 18:00 | NUR ---
UPON ENTERING THE ROOM. PT C/O PAIN IN HIS BACK MORE THAN HIS SCROTUM AREA. FAMILY IN THE ROOM.
--- NOTE | 2017-07-19 19:25 | NUR ---
PT.IS IN BED W/LIGHTS ON AND FAMILY AT BEDSIDE. PT.APPEARS TO BE IN GOOD SPIRITS, PLAYING AND LAUGHING W/CHILD. DENIES ANY NEEDS AT THIS TIME, BUT ENCOURAGED PT.TO CALL IF ANY NEEDS ARISE. ANTIBIOTIC THERAPY IS RUNNING AT THIS TIME.
[2017-07-19 20:00] VITALS: BP 105/66
--- NOTE | 2017-07-20 01:25 | NUR ---
PT.IS SLEEPING W/LIGHTS OUT AT THIS TIME. ANTIBIOTIC THERAPY ADMINISTERED. NO S/S OF DISTRESS. CALL LIGHT AT SIDE
[2017-07-20 04:10] VITALS: BP 136/55
--- NOTE | 2017-07-20 04:38 | NUR ---
UPON ENTERING ROOM PT WAS RETURNING TO BED FROM RESTROOM, C/O PAIN 7/10 IN SCROTUM, BACK AND HEAD. PT.ASKED FOR PERCOCET AND TYLENOL. V/S ASSESSED AND TEMP.99.6, PT.MEDICATED FOR PAIN AT THIS TIME. ICE WATER PROVIDED. PT.DENIES ANY OTHER NEEDS AT THIS TIME.
[2017-07-20 05:21] LABS: HEMATOCRIT 32.7 % (39.0-50.0); HEMOGLOBIN 11.3 g/dl (14.0-18.0); IMMATURE GRANULOCYTES 2.6 % (0.0-1.0); MEAN CELL VOLUME 88.4 fL CALC (80.0-100.0); MEAN CORPUSCULAR HGB 30.5 pG CALC (26.0-32.0); MEAN CORPUSCULAR HGB CONC 34.6 g/L CALC (32.0-36.0); NEUT# 14.06 thou/uL (1.82-7.42); RED BLOOD COUNT 3.7 mill/uL (4.70-6.10); RED CELL DISTRI WIDTH 13.1 % (11.5-15.5)
[2017-07-20 05:56] LABS: ANION GAP 18 (6-22 (CALC)); BUN 9 mg/dL (9-20); BUN/CREATININE RATIO 9 (12-20 (CALC)); CARBON DIOXIDE 26 mmol/l (22-30); CHLORIDE 101 mmol/l (95-108); GFR > 60 ML/MIN (>=60 (CALC)); GFR FOR AFR.AMER. > 60 ML/MIN (>=60 (CALC)); POTASSIUM 4.5 mmol/l (3.5-5.1); SODIUM 140 mmol/l (137-146)
[2017-07-20 08:30] VITALS: BP 110/72
--- NOTE | 2017-07-20 08:30 | NUR ---
PT IS RELAXING IN BED WITH NO DISTRESS NOTED. IV SITE IS FREE FROM REDNESS OR EDEMA. HR IS REG, PULSES ARE STRONG X4, ABD IS SOFT WITH ACTIVE BS. LEFT SCROTAL AREA REMAINS RED AND HARD,
--- NOTE | 2017-07-20 12:15 | NUR ---
PT IS AMBULATING IN THE [place] AND USING A WC WITH FAMILY, IV SITE IS FREE FROM REDNESS OR EDEMA. CONTINUE TO OBSERVE AND MONITOR.
[2017-07-20 13:26] LABS: HEMATOCRIT 34.7 % (39.0-50.0); HEMOGLOBIN 11.5 g/dl (14.0-18.0); MEAN CORPUSCULAR HGB 29.5 pG CALC (26.0-32.0); MEAN CORPUSCULAR HGB CONC 33.1 g/L CALC (32.0-36.0); RED BLOOD COUNT 3.9 mill/uL (4.70-6.10); RED CELL DISTRI WIDTH 13.2 % (11.5-15.5)
[2017-07-20 15:15] VITALS: BP 118/82
--- NOTE | 2017-07-20 16:15 | NUR ---
PT IS SITTING ON THE COUCH, HAS BEEN VISITING WITH FAMILY IV SITE IS FREE FROM REDNESS OR EDEMA. CONTINUE TO OBSERVE AND MONITOR
[2017-07-20 18:45] VITALS: BP 115/77
--- NOTE | 2017-07-20 20:00 | NUR ---
PT.IS UP AND HEADING INTO SHOWER, PT.ASSESSED AT THIS TIME. LUNG SOUNDS ARE CLEAR, SCROTUM IS RED AND EDEMATOUS AND PAINFUL. PT.REPORTS AMBULATING HALLWAY TODAY. PT.WAS JUST UP IN RESTROOM SHAVING. IV SITE COVERED AND FRESH TOWELS AND GOWN PROVIDED. PT.DENIES ANY FURTHER ASSISTANCE, BUT ENCOURAGED TO PULL RED CORD IF ANY NEEDS OR ASSISTANCE ARISES.
--- NOTE | 2017-07-20 22:42 | NUR ---
PT.MEDICATED W/ANTIBIOTIC IV THERAPY AT THIS TIME. REQUESTED HIS GATORADE FROM [facility]RI/PROVIDED. PT.DENIES ANY OTHER NEEDS AT THIS TIME. PT.LEFT HIGH FOWLERS IN BED W/LIGHTS AND TV ON WORKING ON HIS COMPUTER.
--- NOTE | 2017-07-20 23:50 | NUR ---
ANTIBIOTIC THERAPY RUNNING AT THIS TIME, PT.IN BED W/LIGHTS OUT AND TV ON, AWAKE. DENIES ANY NEEDS AT THIS TIME. CALL LIGHT AT SIDE
[2017-07-21 00:14] VITALS: BP 115/75
[2017-07-21 04:00] VITALS: BP 119/76
--- NOTE | 2017-07-21 05:06 | NUR ---
PT.IS SLEEPING AT THIS TIME. IV ANTIBIOTIC THERAPY ADMINISTERED. NO S/S OF DISTRESS, CALL LIGHT W/IN REACH
--- NOTE | 2017-07-21 07:00 | NUR ---
BEDSIDE REPORT RECEIVED BY SONIDO. IS RSTING WITH NO S/S OF DISTRESS NOTED AND CALL LIGHT IN REACH.
[2017-07-21 08:00] VITALS: BP 119/80
--- NOTE | 2017-07-21 08:04 | NUR ---
MEDICATED PT WITH PERCOCET SEE EMAR. ASSESSMENT DONE. RESPS EVEN AND UNLABORED. NS INFUSING WELL. POC DISCUSSED AND SAFETY PRECAUTIONS REINFORCED. CALL LIGHT IN REACH.
--- NOTE | 2017-07-21 12:00 | NUR ---
PT IS EATING HIS LUNCH WITH NO S/S OF DISTRESS NOTED. PT DENIES PAIN AT THIS TIME. CALL LIGHT IN REACH.
[2017-07-21 15:08] VITALS: BP 100/65
--- NOTE | 2017-07-21 16:00 | NUR ---
PT IS RESTING IN BED WITH NO S/S OF DISTRESS NOTED. PT DENIES PAIN AT THIS TIME. CALL LIGHT IN REACH.
--- NOTE | 2017-07-21 18:05 | NUR ---
MEDICATED PT WITH PERCOCET FOR PAIN SEE EMAR. ICE PACK GIVEN. PT MOM IN ROOM. PT DENIES ANY OTHER NEEDS AT THIS TIME. CALL LIGHT IN REACH.
[2017-07-21 19:00] VITALS: BP 113/79
--- NOTE | 2017-07-21 19:30 | NUR ---
PATIENT UP IN THE ROOM-STEADY ON HIS FEET. AWAKE ALERT AND ORIENTEDX3. PATIENT WITH IV SITE TO RIGHT AC INTACT WITH IV ANTIBIOTICS INFUSING ORDERED AT THIS TIME. SITE APPEARS HEALTHY AT THIS TIME. SCROTUM IS RED AND SWOLLEN BUT MUCH IMPROVED FROM LAST WEEK. LEFT TESTICLE REMAINS HARD AND PAINFUL. NO PRIAPISM NOTED AT THIS TIME. ENCOURAGED TO CONT TO USE ELEVATION TO THE AFFECTED AREA WITH TOWEL ROLL. VERBALIZES UNDERSTANDING. CALL LIGHT IN REACH. WILL CONT TO MONITOR.
--- NOTE | 2017-07-21 23:47 | NUR ---
PATIENT RESTING IN BED AT THIS TIME WITH NO COMPLAINTS. DENIES ANY PRIAPISM AT THIS TIME. CALL LIGHT IN REACH. WILL CONT TO MONITOR.
[2017-07-22 04:15] VITALS: BP 109/75
--- NOTE | 2017-07-22 04:36 | NUR ---
APPEARS SLEEPING AT THIS TIME-EYES CLOSED IN NO ACUTE DISTRESS. IVF PATENT AND INFUSING AT KVO. CALL LIGHT IN REACH. WILL CONT TO MONITOR.
[2017-07-22 05:40] LABS: HEMATOCRIT 34.8 % (39.0-50.0); HEMOGLOBIN 11.8 g/dl (14.0-18.0); IMMATURE GRANULOCYTES 2.2 % (0.0-1.0); MEAN CELL VOLUME 90.4 fL CALC (80.0-100.0); MEAN CORPUSCULAR HGB 30.6 pG CALC (26.0-32.0); MEAN CORPUSCULAR HGB CONC 33.9 g/L CALC (32.0-36.0); NEUT# 13.44 thou/uL (1.82-7.42); RED BLOOD COUNT 3.85 mill/uL (4.70-6.10); RED CELL DISTRI WIDTH 13.2 % (11.5-15.5)
[2017-07-22 05:47] LABS: ANION GAP 19 (6-22 (CALC)); BUN 12 mg/dL (9-20); BUN/CREATININE RATIO 12 (12-20 (CALC)); CARBON DIOXIDE 25 mmol/l (22-30); CHLORIDE 101 mmol/l (95-108); GFR > 60 ML/MIN (>=60 (CALC)); GFR FOR AFR.AMER. > 60 ML/MIN (>=60 (CALC)); MAGNESIUM 2.1 mg/dL (1.6-2.3); POTASSIUM 4.6 mmol/l (3.5-5.1); SODIUM 140 mmol/l (137-146)
--- NOTE | 2017-07-22 07:10 | NUR ---
REPORT RECEIVED BY KING ALLRED. PT IS SLEEPING IN BED WITH NO S/S OF DISTRESS NOTED. CALL LIGHT IN REACH.
[2017-07-22 07:31] VITALS: BP 99/67
--- NOTE | 2017-07-22 08:00 | NUR ---
ASSESSMENT DONE. RESPS EVEN AND UNLABORED. #18 RAC THAT APPEARS HEALTHY AND NS INFUSING WELL. PT STATED THAT PAIN MEDICATION HELPED AND ICE PACK GIVEN. PT DENIES ANY OTHER NEEDS AT THIS TIME. SAFETY PRECAUTIONS REINFORCED AND CALL LIGHT IN REACH.
--- NOTE | 2017-07-22 12:00 | NUR ---
PT IS EATING HIS LUNCH AND VISITING WITH FAMILY IN ROOM. PT DENIES PAIN OR NEEDS AT THIS TIME. CALL LIGHT IN REACH.
[2017-07-22 15:28] VITALS: BP 110/70
[2017-07-22] MEDS ORDERED: LEVAQUIN750 MG PO (15:56)
[2017-07-22] MEDS ORDERED: DIFLUCAN150 MG PO (15:56)
[2017-07-22] MEDS ORDERED: HYDROCO/APAP1 T11 PO (15:56)
[2017-07-22] MEDS ORDERED: DIFLUCAN100 MG PO (16:02)
--- NOTE | 2017-07-22 17:19 | NUR ---
PT IS RESTING IN BED WITH NO S/S OF DISTRESS NOTED. PT DENIES PAIN AT THIS TIME. CALL LIGHT IN REACH.
[2017-07-22 18:25] VITALS: BP 113/74
--- NOTE | 2017-07-22 19:53 | NUR ---
Discharge instructions given. Patient verbalizes understanding of same.
--- NOTE | 2017-07-22 20:09 | NUR ---
EDITH COMPLETED-IV SITE TO RIGHT AC D/GALINDO-CATH INTACT. MOTHER IN RROM TO TAKE PATIENT HOME. PATIENT TAKING SHOWER BEFORE LEAVING.
--- NOTE | 2017-07-22 20:22 | NUR ---
PATIENT DISCHARGED WITH DISCHARGE INSTRUCTION WALKING WITH MOTHER AND SON IN ATTENDANCE
--- NOTE | 2017-07-22 20:38 | NUR ---
Discharge instructions given. Patient verbalizes understanding of same. Discharged in stable condition via Ambulatory to Home with mother. All belongings sent with pt.
== END 2017-07-22 20:30 | disposition home or self-care (01) | DRG 728 ==
LOC: ED 06:13 → ED-I 09:16 → ED 09:27 → MS2 09:28
PROVIDERS: Emergency Medicine; Nurse Practitioner Family; ADMIT Internal Medicine; ATTEND Internal Medicine
DX: N45.3 Epididymo-orchitis (principal); N39.0 Urinary tract infection, site not specified; E87.6 Hypokalemia; N48.30 Priapism, unspecified; F15.10 Other stimulant abuse, uncomplicated; F17.210 Nicotine dependence, cigarettes, uncomplicated; N43.3 Hydrocele, unspecified; B96.20 Unspecified Escherichia coli [E. coli] as the cause of diseases classified elsewhere
CPT/HCPCS: G0378; J3370; Q9967